=== PATIENT | female | born 2000 | race Caucasian/White ===

== ENCOUNTER 2020-02-18 20:07 | Emergency (ER) | payer OTHER, SELFPAY ==
[2020-02-18 20:37] VITALS: BP 134/85; PULSE 84; RESP 18; TEMP 36.5; O2SAT 98; BMI 33.6
[2020-02-18] MEDS: HYDROcodone-acetaminophen 7.5-325 mg Tablet 1 TAB PO (20:46)
--- NOTE | 2020-02-18 20:49 | W.ED.DENTAL ---
HPI - Dental/Oral General: Chief complaint: Dental/Oral Stated complaint: dental pain Time Seen by Provider: 02/18/20 20:37 Source: patient Mode of arrival: ambulatory Limitations: no limitations History of Present Illness: HPI Narrative: 19-year-old female who states she has had dental pain for last few days. States she is getting her wisdom teeth in the back lower wisdom tooth is hurting. States pain is sharp in nature and rates it a 5 out of 10. She denies any difficulty swallowing. Denies any worsening or improving factors. MD Complaint: tooth pain Associated symptoms: Denies fever(s) Review of Systems Const: Denies: fever(s), chills, body aches or change in appetite Eyes: Denies: blurry vision or eye discomfort ENMT: Reports: dental pain Card: Denies: chest pain Resp: Denies: dyspnea GI: Denies: abdominal pain, nausea, vomiting or diarrhea : Denies: dysuria Musc: Denies: neck pain or back pain Skin/Breast: Denies: rash Neuro: Denies: headache(s) Psych: Denies: depression Sukhdeep/Lymph: Denies: easy bruising All/Imm: Denies: urticaria PFSH ED PFSH: Social History Smoking and tobacco status: current every day smoker Physical Exam Const: COMMON NORMALS: no acute distress, patient oriented x3 and healthy appearing HENMT: COMMON NORMALS: normocephalic and atraumatic HEAD & SCALP: normocephalic and atraumatic OTHER: Tenderness over back lower wisdom tooth with slight gum enlargement no abscess noted. Eye: COMMON NORMALS: Equal, round and reactive pupils present and EOMs intact bilaterally PUPIL: Yes Equal, round and reactive pupils present Neck/C-Spine: COMMON NORMALS: full ROM and supple Chest: COMMONS NORMALS: normal inspection of the chest and normal palpation of entire chest wall Resp: COMMON NORMALS: normal respiratory effort, No retractions, No use of accessory muscles and clear to auscultation bilaterally AUSCULTATION: clear to auscultation bilaterally Cardio: COMMON NORMALS: regular rate, regular rhythm and No murmurs present (Cardio) RATE: regular rate RHYTHM: regular rhythm GI: COMMON NORMALS: Normal to inspection, nondistended, normoactive bowel sounds present, Soft to palpation, non-tender and no masses PALPATION: Yes Soft to palpation Extremity: COMMON NORMALS: normal to inspection and full ROM Neuro: COMMON NORMALS: patient oriented x3, moves all extremities and no focal motor deficits Psych: COMMON NORMALS: mental status grossly normal, Normal thought process present and cooperative THOUGHT PROCESS: Normal thought process present Skin: COMMON NORMALS: no rashes or lesions noted and no wounds GENERAL SKIN EXAM: no rashes or lesions noted Course Vital Signs: Vital signs: Vital Signs Temperature 97.7 F 02/18/20 20:37 Pulse Rate 84 02/18/20 20:37 Respiratory Rate 18 02/18/20 20:37 Blood Pressure 134/85 02/18/20 20:37 Pulse Oximetry 98 02/18/20 20:37 MDM - Dental/Oral MDM Narrative: Medical decision making narrative: Patient presents with dental pain likely needs see a dentist as she possibly needs her wisdom teeth removed. We will start her on penicillin and Naprosyn. She had no abscess or trismus. She is to return if worsening. Discharge Plan Discharge Patient Disposition: Home, Self-Care Clinical Impression: Pain, dental Condition: Stable Prescriptions: New Naprosyn 500 mg tablet 500 mg PO BID PRN (Reason: pain) Qty: 20 RF: 0 penicillin V potassium 500 mg tablet 500 mg PO Q8H 10 Days Qty: 30 RF: 0 Discharge Orders: Discharge Order (Routine); Ordered 02/18/20 Ordered By: Nikky Lopes Referrals: Sj Em FNP-C [Primary Care Provider] - Discharge Diet: Advance as tolerated Discharge Activity: Resume usual activity Patient Instructions: Toothache (ED) Coding Level of Care Code ED Research Associate Quality Control Qc for Viraj Mondragon
--- NOTE | 2020-02-19 11:25 | DCPLANNER ---
sales and business development manager had message to speak with patient about getting established with a dentist. sales and business development manager spoke with patient, about getting established with a dentist.
== END 2020-02-18 21:05 | disposition home or self-care (01) ==
PROVIDERS: Emergency Provider Emergency Medicine; PCP Nurse Practitioner
DX: K08.89 Other specified disorders of teeth and supporting structures (principal); F17.210 Nicotine dependence, cigarettes, uncomplicated
CPT/HCPCS: 12345; 99281; 99282

== ENCOUNTER → 2020-02-25 15:16 | Outpatient (BNVA) | payer OTHER, SELFPAY | PROVIDERS: PCP Nurse Practitioner Family; Visit Provider Nurse Practitioner Family | DX: N39.0 Urinary tract infection, site not specified (principal); N93.9 Abnormal uterine and vaginal bleeding, unspecified; B37.3 Candidiasis of vulva and vagina; Z11.3 Encounter for screening for infections with a predominantly sexual mode of transmission | CPT/HCPCS: 81003; 81025; 84702; 87491; 87591; 87661 ==

== ENCOUNTER 2020-05-15 14:00 | Outpatient (CLI) | payer OTHER, SELFPAY ==
--- NOTE | 2020-05-15 14:00 | CT_ITS ---
WS: [id number] CT ABDOMEN AND PELVIS NONCONTRAST HISTORY: Right upper abdomen pain and tenderness TECHNIQUE: Imaging performed through the abdomen and pelvis. Coronal and sagittal reformats are submi tted. All CT scans at [facility] use at least one of these dose optimization techniques: automated exposure control; mA and/or kV adjustment per patient size (includes targeted exams where d ose is matched to clinical indication); or iterative reconstruction. DLP: 1200.27 mGy.cm COMPARISON: 03/16/2019 Lower thorax: Lung bases are clear. Visualized heart is normal. No hiatal hernia. Liver: Normal size liver. No mass or bile duct dilatation. Gallbladder: Normal gallbladder. Pancreas: Normal size and attenuation. Normal pancreatic duct. No pancreatitis or mass. Spleen: Normal. Adrenal glands: Normal. No mass. Right kidney: Normal size kidney with no mass or hydronephrosis. Left kidney: Nonobstructing 2 mm stone in the upper pole similar to the prior examination. Aorta: Normal abdominal aorta, no aneurysm or atherosclerosis. There are numerous small mesenteric and RIGHT lower quadrant lymph nodes. These lymph nodes were pres ent on the study of 03/16/2019. The appendix is normal. GI tract: Normal appendix. No GI tract obstruction or diverticulosis. Abdominal wall: Negative. No hernia. Pelvis: Normal anteverted uterus. Ovaries are both identified and appear normal size. Small follicles are probably present. Urinary bladder minimally distended. No free fluid or adenopathy. Osseous structures: Unremarkable. CT/CT abdomen pelvis wo con [id number] IMPRESSION: 1. Numerous small mesenteric and RIGHT lower quadrant lymph nodes. Consider me senteric adenitis. These lymph nodes were also present on the study of 9. 2. Normal appendix. 3. Nonobstructing 2 mm LEFT renal calcification.
== END 2020-05-15 14:01 | disposition home or self-care (01) ==
LOC: RAD 14:01
PROVIDERS: PCP Nurse Practitioner Family; Visit Provider Nurse Practitioner
DX: R10.813 Right lower quadrant abdominal tenderness (principal); N20.0 Calculus of kidney
CPT/HCPCS: 74176; 81003; 81025; 85025

== ENCOUNTER 2020-05-27 05:43 | Emergency (ER) | payer OTHER, SELFPAY ==
[2020-05-27 05:48] VITALS: BP 125/76; PULSE 90; RESP 22; TEMP 36.6; O2SAT 98; BMI 37.2
[2020-05-27 06:04] VITALS: BP 123/69; PULSE 76; RESP 16; O2SAT 98
--- NOTE | 2020-05-27 06:12 | PC.NURSE ---
blood drawn and taken to lab by nurse
--- NOTE | 2020-05-27 06:25 | ED_ITS ---
HPI - Abdominal Pain General: Chief Complaint: Abdominal Pain Stated Complaint: abd pain Time Seen by Provider: 05/27/20 06:17 History of Present Illness: HPI narrative: 19-year-old female presents emergency room complaining of generalized abdominal pain she cannot of localize it seems to be migrating to the right lower quadrant. She was seen 12 days ago in the clinic had a CT done had mesenteric lymphadenitis and the bladder infection was started on antibiotics for the bladder infection. She is under the impression that the antibiotics were for the mesenteric lymphadenitis we discussed that today. She is complaining of continued recurring abdominal pain she denies any dysuria urgency or frequency she did have a nonobstructing left renal calculi but she has no pain in the left side she is not had any blood in her urine. She denies fever she denies cough she denies diarrhea. No myalgias. MD elicited complaint: abdominal pain Pertinent past history: kidney stones and other (Mesenteric lymphadenitis) Onset (ago): hour(s) Pain Consistency: constant Location: RLQ Severity: severe Quality: cramping and stabbing Exacerbating factors: movement Relieving factors: nothing Associated Symptoms: Reports anorexia, GI cramping and nausea; Denies belching, bloating, change in bowel habits, change in stool character, chills, coffee ground emesis, constipation, diarrhea, dyspepsia, dysuria, excessive flatus, fever(s), heartburn, hematochezia, hematuria, hematemesis, fecal incontinence, loose stools, melena, poor appetite, syncope and vomiting Review of Systems Const: Denies: fever(s) or chills ENMT: Denies: throat pain, ear or mastoid pain, nasal discharge or nasal congestion Card: Denies: syncope Resp: Denies: dyspnea, productive cough or non-productive cough GI: Reports: nausea and GI cramping; Denies: vomiting, hematemesis, coffee ground emesis, heartburn, diarrhea, constipation, bloating, belching, excessive flatus, fecal incontinence, change in bowel habits, change in stool character, hematochezia or melena : Denies: dysuria or hematuria Skin/Breast: Denies: rash or pruritus PFSH ED PFSH: Medical History Chronic post-traumatic stress disorder (PTSD) History of panic attacks Surgical History History of D&C Family History Other Cancer Dementia Diabetes Denies family history of Bleeding disorder Stroke Social History Smoking and tobacco status: current every day smoker cigarettes Packs smoked per day: 1 Years cigarettes smoked: 6 Second hand smoke exposure: Yes Smoking risk assessment/counseling performed?: Yes Alcohol intake: former Desire information about alcohol rehabilitation?: No Counseling given: No Desire information about substance/drug rehabilitation?: No Counseling given: No Adopted: No Caregiver/support person: No Lives independently: Yes Household members: significant other Housing: House Marital status: Single Number of children: 0 service: No Current occupational status: unemployed and student Current occupation: [employer] Pets and animals: Yes Pets & animals: cat(s) and dog(s) History of recent travel: Yes Out of state: Yes Sexually active: Yes Current gender identity: Female Female Reproductive History: : 1 Physical Exam Const: COMMON NORMALS: no acute distress GENERAL APPEARANCE: cooperative and comfortable ORIENTATION/CONSCIOUSNESS: Yes awake, Yes oriented to person, Yes oriented to place and Yes oriented to time HENMT: COMMON NORMALS: normocephalic, atraumatic and hearing grossly normal bilaterally HEAD & SCALP: normocephalic and atraumatic Eye: COMMON NORMALS: Equal, round and reactive pupils present, EOMs intact bilaterally, conjunctivae normal and no scleral icterus CONJUNCTIVA: Yes conjunctivae normal PUPIL: Yes Equal, round and reactive pupils present Neck/C-Spine: COMMON NORMALS: no JVD Resp: COMMON NORMALS: normal respiratory effort, No retractions, No use of accessory muscles and clear to auscultation bilaterally AUSCULTATION: clear to auscultation bilaterally Cardio: COMMON NORMALS: no JVD, regular rate, regular rhythm and No murmurs present (Cardio) RATE: regular rate RHYTHM: regular rhythm GI: COMMON NORMALS: No hepatosplenomegaly present AUSCULTATION: Yes normoactive bowel sounds PALPATION: Yes Tenderness to palpation present (GI) Details: RLQ, No Guarding due to palpation present (GI) and Yes No hepatosplenomegaly present : COMMON NORMALS: Yes no CVA tenderness BLADDER/KIDNEY EXAM: Yes no CVA tenderness Back/Pelvis: COMMON NORMALS: no CVA tenderness Extremity: COMMON NORMALS: normal to inspection, capillary refill normal, no clubbing, cyanosis or edema, no calf tenderness and no pedal edema Neuro: SENSORIUM/ORIENTATION: Yes oriented to person, Yes oriented to place and Yes oriented to time Skin: COMMON NORMALS: no rashes or lesions noted GENERAL SKIN EXAM: no rashes or lesions noted Course Vital Signs: Vital signs: Vital Signs Temperature 97.9 F 05/27/20 05:48 Pulse Rate 59 L 05/27/20 10:02 Respiratory Rate 15 05/27/20 10:02 Blood Pressure 114/67 05/27/20 10:02 Pulse Oximetry 97 05/27/20 10:02 MDM - Abdominal Pain MDM Narrative: Medical decision making narrative: Reviewed findings with the patient. We will go ahead and start her on Diflucan. Pelvic exam done by midlevel unremarkable for any cervical motion tenderness. We will have her follow-up with primary care doctor if not improving. Lab Data: Labs: Lab Results 05/27/20 05/27/20 05/27/20 Range/Units 06:10 06:10 06:10 WBC 12.5 (4.5-13.0) 10^3/ uL RBC 4.47 (4.1-5.3) 10^6/u L Hgb 13.2 (11.5-15.3) g/dL Hct 40.0 (37.0-47.0) % MCV 89.5 (81-99) fL MCH 29.5 (28.0-34.0) pg MCHC 33.0 (30.0-36.0) g/dL RDW 12.4 (12.1-15.1) % Plt Count 317 (130-400) 10^3/c mm MPV 11.5 H (7.4-10.4) fL Neut % (Auto) 60.1 % Lymph % (Auto) 28.4 % [place] % (Auto) 5.7 % Eos % (Auto) 4.8 % Baso % (Auto) 0.7 % Neut # (Auto) 7.53 (1.8-8.0) 10^3/u L Lymph # (Auto) 3.6 (1.5-6.5) 10^3/u L [place] # (Auto) 0.7 (0.2-0.9) 10^3/u L Eos # (Auto) 0.6 (0.0-0.8) 10^3/u L Baso # (Auto) 0.1 (0.0-0.1) 10^3/u L Nucleated RBC % (a uto) 0 % Nucleated RBCs # 0.0 /100WBC Sodium 138 (136-145) mmol/L Potassium 4.0 (3.5-5.1) mmol/L Chloride 104 (98-107) mmol/L Carbon Dioxide 20 L (22-29) mmol/L Anion Gap 18.0 (5-19) BUN 9 (6-20) mg/dL Creatinine 0.7 (0.5-0.9) mg/dL GFR Calculation 106.7 (90-130) mL/min Glucose 125 H (65-115) mg/dL Calculated Osmolal ity 286 (285-295) mOsm/k g Calcium 9.5 (8.5-10.5) mg/dL Total Bilirubin 0.2 (0.15-1.2) mg/dL AST 16 (0-32) U/L ALT 17 (0-33) U/L Alkaline Phosphata se 73 (35-105) IU/L Total Protein 6.8 (6.6-8.7) g/dL Albumin 4.2 (3.5-5.2) g/dL Globulin 2.6 (1.3-4.6) g/dL Lipase 27 (13-60) U/L HCG, Qual Negative (Negative) Urine Color (Yellow) Urine Appearance (CLEAR) Urine pH (5-7) Ur Specific Gravit y (1.005-1.030) Urine Protein (Negative) Urine Glucose (UA) (Normal) Urine Ketones (Negative) Urine Blood (Negative) Urine Nitrate (Negative) Urine Bilirubin (Negative) Urine Urobilinogen (Negative) mg/dL Ur Leukocyte Gail ase (Negative) Urine RBC (0-2) /hpf Urine WBC (0-5) /hpf Ur Squamous Epith Cells (0-5) /hpf Amorphous Sediment Urine Bacteria (NONE) /hpf Urine Mucus /hpf 05/27/20 Range/Units 06:42 WBC (4.5-13.0) 10^3/ uL RBC (4.1-5.3) 10^6/u L Hgb (11.5-15.3) g/dL Hct (37.0-47.0) % MCV (81-99) fL MCH (28.0-34.0) pg MCHC (30.0-36.0) g/dL RDW (12.1-15.1) % Plt Count (130-400) 10^3/c mm MPV (7.4-10.4) fL Neut % (Auto) % Lymph % (Auto) % [place] % (Auto) % Eos % (Auto) % Baso % (Auto) % Neut # (Auto) (1.8-8.0) 10^3/u L Lymph # (Auto) (1.5-6.5) 10^3/u L [place] # (Auto) (0.2-0.9) 10^3/u L Eos # (Auto) (0.0-0.8) 10^3/u L Baso # (Auto) (0.0-0.1) 10^3/u L Nucleated RBC % (a uto) % Nucleated RBCs # /100WBC Sodium (136-145) mmol/L Potassium (3.5-5.1) mmol/L Chloride (98-107) mmol/L Carbon Dioxide (22-29) mmol/L Anion Gap (5-19) BUN (6-20) mg/dL Creatinine (0.5-0.9) mg/dL GFR Calculation (90-130) mL/min Glucose (65-115) mg/dL Calculated Osmolal ity (285-295) mOsm/k g Calcium (8.5-10.5) mg/dL Total Bilirubin (0.15-1.2) mg/dL AST (0-32) U/L ALT (0-33) U/L Alkaline Phosphata se (35-105) IU/L Total Protein (6.6-8.7) g/dL Albumin (3.5-5.2) g/dL Globulin (1.3-4.6) g/dL Lipase (13-60) U/L HCG, Qual (Negative) Urine Color Yellow (Yellow) Urine Appearance Sl hazy (CLEAR) Urine pH 7.5 (5-7) Ur Specific Gravit y 1.020 (1.005-1.030) Urine Protein Neg (Negative) Urine Glucose (UA) Norm (Normal) Urine Ketones 1+ H (Negative) Urine Blood 3+ H (Negative) Urine Nitrate Negative (Negative) Urine Bilirubin Neg (Negative) Urine Urobilinogen Norm (Negative) mg/dL Ur Leukocyte Gail ase Negative (Negative) Urine RBC 10-15 H (0-2) /hpf Urine WBC 0-4 H (0-5) /hpf Ur Squamous Epith Cells 5-10 H (0-5) /hpf Amorphous Sediment Not Reportable Urine Bacteria Trace (NONE) /hpf Urine Mucus 1+ /hpf Discharge Plan Discharge Patient Disposition: Home Clinical Impression: Abdominal pain, Candidiasis of genitalia in female Condition: Stable Prescriptions: New Diflucan 150 mg tablet 150 mg PO DAILY Qty: 1 RF: 0 No Action ciprofloxacin HCl [Cipro] 500 mg tablet 500 mg PO Q12H Qty: 20 RF: 0 etonogestrel-ethinyl estradiol [NuvaRing] 0.12-0.015 mg/24 hr ring 1 vag ring VAGINAL .wear for 3 weeks Qty: 3 RF: 1 Multiple Vitamins Tablet 1 tab PO DAILY RF: 0 ibuprofen 200 mg Tablet 400 - 800 mg PO PRN RF: 0 Miralax 17 gram/dose Powder 17 g PO EVERY OTHER DAY RF: 0 apple cider vinegar 1 tab PO DAILY RF: 0 Discharge Orders: Discharge Order (Routine); Ordered 05/27/20 Ordered By: Ace Ramires Referrals: Sj Em, ROPER OPERATOR-C [Primary Care Provider] - Patient Instructions: Abdominal Pain (ED) Discharge Date/Time: 05/27/20 10:03 Coding Level of Care Code ED Tape Editor for Chg Fwd Exam Comprehensive
[2020-05-27 06:27] LABS: Basophils # 0.1 10^3/uL (0.0-0.1); Basophils % 0.7 %; Eosinophils # 0.6 10^3/uL (0.0-0.8); Eosinophils % 4.8 %; Hemoglobin 13.2 g/dL (11.5-15.3); Lymphocytes # 3.6 10^3/uL (1.5-6.5); Lymphocytes % 28.4 %; Mean Corpuscular Hemoglobin 29.5 pg (28.0-34.0); Mean Corpuscular Volume 89.5 fL (81-99); Mean Platelet Volume 11.5 fL (7.4-10.4); Monocytes # 0.7 10^3/uL (0.2-0.9); Monocytes % 5.7 %; Neutrophils # 7.53 10^3/uL (1.8-8.0); Neutrophils % 60.1 %; Nucleated Red Blood Cells % 0 %; Platelet Count 317 10^3/cmm (130-400); Red Blood Count 4.47 10^6/uL (4.1-5.3); Red Cell Distribution Width 12.4 % (12.1-15.1); White Blood Count 12.5 10^3/uL (4.5-13.0)
[2020-05-27 06:35] LABS: HCG, Serum Qual Negative (Negative)
[2020-05-27 06:41] LABS: Alanine Aminotransferase 17 U/L (0-33); Albumin Level 4.2 g/dL (3.5-5.2); Alkaline Phosphatase 73 IU/L (35-105); Aspartate Amino Transferase 16 U/L (0-32); Blood Urea Nitrogen 9 mg/dL (6-20); Calcium 9.5 mg/dL (8.5-10.5); Carbon Dioxide 20 mmol/L (22-29); Chloride 104 mmol/L (98-107); Globulin 2.6 g/dL (1.3-4.6); Glomerular Filtration Rate 106.7 mL/min (90-130); Glucose 125 mg/dL (65-115); Lipase 27 U/L (13-60); Osmolality Calculated 286 mOsm/kg (285-295); Sodium 138 mmol/L (136-145); Total Bilirubin 0.2 mg/dL (0.15-1.2); Total Protein 6.8 g/dL (6.6-8.7)
[2020-05-27] MEDS: sodium chlor 0.9% + KCl 20 mEq 20 MEQ/1,000 ML BAG 125 MEQ IV (06:42)
[2020-05-27 06:43] VITALS: BP 102/67; PULSE 71; RESP 17; O2SAT 96
--- NOTE | 2020-05-27 07:05 | CT_ITS ---
WS: [id number] CT ABDOMEN AND PELVIS WITH CONTRAST HISTORY: Abdominal pain. TECHNIQUE: Imaging performed of the abdomen and pelvis with IV contrast. Single phase imaging of the abdomen. Coronal and sagittal reformats are submitted. All CT scans at [facility] use at least one of these dose optimization techniques: automated exposure control; mA and/or kV adjustment per patient size (includes targeted exams where dose is matched to clinical indication); or iterativ e reconstruction. IV CONTRAST: Omnipaque 300; 95 mL IV. Oral contrast: No DLP: 1329.58 mGy.cm COMPARISON: 05/15/2020 Lower thorax: Lung bases are clear. Heart is normal size. No hiatal hernia. Liver/biliary system: Normal size with no intrahepatic dilatation. Gallbladder: Normal. No gallstones or wall thickening. No pericholecystic fluid. Pancreas: Normal. Spleen: Normal. Adrenal glands: Normal. Right kidney: Normal. Left kidney: Normal. Aorta: Normal. Lymphadenopathy: Small RIGHT lower quadrant and mesenteric lymph nodes. No adenopathy. Free fluid: None. GI tract: Unremarkable. Abdominal wall: Unremarkable abdominal wall. No hernia. Pelvis: Normal. Small ovarian follicles bilaterally. Bones: Unremarkable. CT/CT abdomen pelvis w con* [id number] IMPRESSION: 1. No evidence for appendicitis or renal obstruction. 2. Small benign-appearing mesenteric and RIGHT lower quadrant lymph nodes.
[2020-05-27 07:14] VITALS: RESP 18; O2SAT 98
[2020-05-27 07:14] LABS: Add Urine Culture? Yes; Add Urine Microscopic? YES; Bacteria Urine TRACE /hpf; Bilirubin Urine Neg (Negative); Blood Urine 3+ (Negative); Glucose Urine UA Norm (Normal); Ketones Urine 1+ (Negative); Leukocyte Esterase Urine Negative (Negative); Mucus Urine 1+ /hpf; Nitrate Urine Negative (Negative); Protein Urine Neg (Negative); Urine Appearance SL Hazy (CLEAR); Urine Color Yellow (Yellow); Urobilinogen Urine Norm (Negative); WBC Urine 0-4 /hpf (0-5); pH Urine 7.5 (5-7)
[2020-05-27] MEDS: ondansetron 2 mg/ML SDV 2 mL 4 MG IVP (07:14)
[2020-05-27] MEDS: morphine 4 mg/mL SDV 1 mL IVP (07:14)
[2020-05-27 07:18] VITALS: BP 106/56; PULSE 79; RESP 17; O2SAT 97
--- NOTE | 2020-05-27 07:18 | PC.NURSE ---
At patients bedside to introduce myself. Patient resting in bed. No distress noted at this time. WIll continue to monitor patient.
[2020-05-27] MEDS: iohexol 300 mg/mL 100 mL Btl IV (07:49)
--- NOTE | 2020-05-27 09:46 | PC.NURSE ---
Vaginal swabs obtained by FLAVOR MAKER and sent to lab.
[2020-05-27 10:02] VITALS: BP 114/67; PULSE 59; RESP 15; O2SAT 97
== END 2020-05-27 10:03 | disposition home or self-care (01) ==
PROVIDERS: Emergency Provider Family Medicine; PCP Nurse Practitioner
DX: R10.9 Unspecified abdominal pain (principal); B37.3 Candidiasis of vulva and vagina; F17.210 Nicotine dependence, cigarettes, uncomplicated
CPT/HCPCS: 12345; 74177; 80053; 81001; 83690; 84703; 85025; 87086; 87491; 87591; 87661; 96365; 96366; 96375; 99283; 99284; J2270; J2405; Q9967

== ENCOUNTER → 2020-06-09 10:41 | Outpatient (BNVA) | payer OTHER, SELFPAY | PROVIDERS: PCP Nurse Practitioner; Visit Provider Nurse Practitioner Family | DX: Z11.59 Encounter for screening for other viral diseases (principal); Z20.828 Contact with and (suspected) exposure to other viral communicable diseases; J06.9 Acute upper respiratory infection, unspecified | CPT/HCPCS: 87635 ==

== ENCOUNTER → 2020-08-19 09:46 | Outpatient (BNVA) | payer OTHER, SELFPAY | PROVIDERS: PCP Nurse Practitioner; Visit Provider Nurse Practitioner | DX: Z11.3 Encounter for screening for infections with a predominantly sexual mode of transmission (principal); R30.0 Dysuria; N91.2 Amenorrhea, unspecified; Z12.4 Encounter for screening for malignant neoplasm of cervix | CPT/HCPCS: 87491; 87591; 88175 ==

== ENCOUNTER 2020-10-18 15:57 | Emergency (ER) | payer OTHER, SELFPAY ==
[2020-10-18 16:03] VITALS: BP 144/86; PULSE 85; RESP 18; TEMP 37.1; O2SAT 97; BMI 36.3
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
--- NOTE | 2020-10-18 16:17 | XRR_ITS ---
PROCEDURE INFORMATION: Exam: XR Abdomen, 3 or More Views Exam date and time: 10/18/2020 5:15 PM Age: 20 years old Clinical indication: Abdominal pain; Additional info: Abd pain, constipation TECHNIQUE: Imaging protocol: XR of the abdomen. Views: 3 or more views. COMPARISON: No relevant prior studies available. FINDINGS: Gastrointestinal tract: Normal. No bowel dilation. Moderate colonic fecal stasis in the ascending colon. The remainder of the colon is unremarkable. Negative for fecal impaction or bowel obstruction. Intraperitoneal space: Normal. No free air. Bones/joints: Unremarkable for age. XR/XR acute abdomen series [id number] IMPRESSION: 1. No acute chest abnormality. 2. Negative for acute GI abnormality
[2020-10-18] MEDS: sodium chloride 0.9% 1,000 ML 999 ML IV (16:33)
[2020-10-18] MEDS: ketorolac 30 mg/mL INJ 15 MG IVP (16:35)
[2020-10-18] MEDS: metoclopramide 5 mg/mL SDV 2 mL 10 MG IVP (16:35)
[2020-10-18] MEDS: diphenhydrAMINE 50 mg/mL SDV 1mL 12.5 MG IVP (16:36)
[2020-10-18 16:44] VITALS: BP 110/72; PULSE 69; RESP 18; O2SAT 97
[2020-10-18 16:51] LABS: Basophils # 0.1 10^3/uL (0.0-0.1); Basophils % 0.5 %; Eosinophils # 0.3 10^3/uL (0.0-0.8); Eosinophils % 2.2 %; Hematocrit 40.8 % (37.0-47.0); Hemoglobin 13.6 g/dL (11.5-15.3); Lymphocytes # 2.7 10^3/uL (0.8-4.8); Lymphocytes % 17.8 %; Mean Corpuscular HGB Conc 33.3 g/dL (30.0-36.0); Mean Platelet Volume 11.3 fL (7.4-10.4); Monocytes # 0.9 10^3/uL (0.2-0.9); Neutrophils # 11.08 10^3/uL (1.8-7.7); Neutrophils % 73.2 %; Nucleated Red Blood Cells % 0 %; Platelet Count 317 10^3/cmm (130-400); Red Blood Count 4.69 10^6/uL (4.1-5.3); Red Cell Distribution Width 12.5 % (12.1-15.1); White Blood Count 15.1 10^3/uL (4.0-10.0)
[2020-10-18 16:59] LABS: HCG, Serum Qual Negative (Negative)
[2020-10-18 17:06] LABS: Alanine Aminotransferase 21 U/L (0-33); Albumin Level 4.4 g/dL (3.5-5.2); Alkaline Phosphatase 82 IU/L (35-105); Aspartate Amino Transferase 17 U/L (0-32); Blood Urea Nitrogen 10 mg/dL (6-20); Calcium 10.1 mg/dL (8.5-10.5); Carbon Dioxide 22 mmol/L (22-29); Chloride 105 mmol/L (98-107); Globulin 2.9 g/dL (1.3-4.6); Glomerular Filtration Rate 105.6 mL/min (90-130); Glucose 90 mg/dL (65-115); Lipase 16 U/L (13-60); Osmolality Calculated 283 mOsm/kg (285-295); Sodium 137 mmol/L (136-145); Total Bilirubin 0.4 mg/dL (0.15-1.2); Total Protein 7.3 g/dL (6.6-8.7)
[2020-10-18 17:08] LABS: Add Urine Microscopic? YES; Bacteria Urine 1+ /hpf; Bilirubin Urine Neg (Negative); Blood Urine 3+ (Negative); Glucose Urine UA Norm (Normal); Ketones Urine Negative (Negative); Leukocyte Esterase Urine Negative (Negative); Mucus Urine 2+ /hpf; Nitrate Urine Negative (Negative); Protein Urine Neg (Negative); RBC Urine 15-25 /hpf (0-2); Specific Gravity, Urine 1.025 (1.005-1.030); Squamous Epithelial Cell Urine 0-4 /hpf (0-5); Urine Appearance Clear (CLEAR); Urine Color Yellow (Yellow); Urobilinogen Urine Norm (Negative); WBC Urine 0-4 /hpf (0-5); pH Urine 5 (5-7)
[2020-10-18 17:09] LABS: Add Urine Culture? Yes
--- NOTE | 2020-10-18 17:14 | PC.NURSE ---
patient stated felt better, tolerated pain well, denied any nausea at this time.
[2020-10-18 17:58] VITALS: BP 118/67; PULSE 89; RESP 16; O2SAT 98
== END 2020-10-18 18:08 | disposition home or self-care (01) ==
PROVIDERS: Nurse Practitioner Family; Emergency Provider Physician Assistant; PCP Nurse Practitioner
DX: K58.1 Irritable bowel syndrome with constipation (principal); N30.01 Acute cystitis with hematuria; F17.290 Nicotine dependence, other tobacco product, uncomplicated
CPT/HCPCS: 74022; 80053; 81001; 83690; 84703; 85025; 87086; 96361; 96374; 96375; 99284; J1200; J1885; J2765; J7030

== ENCOUNTER → 2020-12-18 15:20 | Outpatient (BNVA) | payer OTHER, SELFPAY | PROVIDERS: PCP Nurse Practitioner; Visit Provider Nurse Practitioner Women's Health | DX: Z12.4 Encounter for screening for malignant neoplasm of cervix (principal) | CPT/HCPCS: 88175 ==

== ENCOUNTER → 2021-02-20 11:41 | Outpatient (BNVA) | payer OTHER, SELFPAY | PROVIDERS: PCP Nurse Practitioner; Visit Provider Nurse Practitioner Family | DX: R39.9 Unspecified symptoms and signs involving the genitourinary system (principal); F41.8 Other specified anxiety disorders; Z72.51 High risk heterosexual behavior | CPT/HCPCS: 81003; 87491; 87591; 87661 ==

== ENCOUNTER 2021-10-19 14:09 | Emergency (ER) | payer MEDICAID, SELFPAY ==
[2021-10-19 14:18] VITALS: BP 110/70; PULSE 85; RESP 16; TEMP 36.7; O2SAT 99; BMI 33.6
--- NOTE | 2021-10-19 14:48 | US_ITS ---
WS: [id number] ULTRASOUND OB LIMITED. HISTORY: lower abdominal/pelvic pain; 18 wks COMPARISON: None available. Single intrauterine gestation in cephalic position. Cervix is closed measuring 5.3 cm. Both transabdo mady and transvaginal imaging is submitted. No cervical insufficiency. Limited biometry correlates with a gestation of 19 weeks 0 days and EDC of 03/15/2022. heart rate at 153 BPM. Placenta is posterior and to the RIGHT. No previa or abruption. Grade 1. Normal amount of amniotic fl uid. US/US OB lmt with transvaginal IMPRESSION: 1. Normal cardiac activity. 2. Normal amniotic fluid. 3. Normal cervical length. 4. Limited biometry correlates with a gestation of 19 weeks 0 days.
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
[2021-10-19 15:01] VITALS: BP 130/66; PULSE 73; RESP 16; O2SAT 96
[2021-10-19 15:04] LABS: Basophils % 0.3 %; Eosinophils # 0.2 10^3/uL (0.0-0.8); Eosinophils % 1.6 %; Hematocrit 36.1 % (37.0-47.0); Hemoglobin 12.2 g/dL (11.5-15.3); Lymphocytes # 2.5 10^3/uL (0.8-4.8); Lymphocytes % 17.5 %; Mean Corpuscular HGB Conc 33.8 g/dL (30.0-36.0); Mean Corpuscular Volume 88.7 fl (81-99); Mean Platelet Volume 11.3 fL (7.4-10.4); Monocytes # 0.8 10^3/uL (0.2-0.9); Monocytes % 5.6 %; Neutrophils # 10.57 10^3/uL (1.8-7.7); Neutrophils % 74.6 %; Nucleated Red Blood Cells % 0 %; Platelet Count 273 10^3/cmm (130-400); Red Blood Count 4.07 10^6/uL (4.1-5.3); Red Cell Distribution Width 12.5 % (12.1-15.1); White Blood Count 14.2 10^3/uL (4.0-10.0)
[2021-10-19 15:20] LABS: Add Urine Culture? No; Add Urine Microscopic? YES; Bacteria Urine 1+ /hpf; Bilirubin Urine Neg (Negative); Blood Urine 3+ (Negative); Glucose Urine UA Norm (Normal); Ketones Urine Negative (Negative); Leukocyte Esterase Urine 2+ (Negative); Nitrate Urine Negative (Negative); Protein Urine Neg (Negative); RBC Urine 0-4 /hpf (0-2); Specific Gravity, Urine 1.025 (1.005-1.030); Urine Appearance Hazy (CLEAR); Urine Color Yellow (Yellow); Urobilinogen Urine 1 mg/dL (Negative); pH Urine 6 (5-7)
[2021-10-19 15:33] LABS: Alanine Aminotransferase 17 U/L (0-33); Albumin Level 4.1 g/dL (3.5-5.2); Alkaline Phosphatase 77 IU/L (35-105); Anion Gap 16.2 (5-19); Aspartate Amino Transferase 12 U/L (0-32); Blood Urea Nitrogen 7 mg/dL (6-20); Calcium 9.7 mg/dL (8.5-10.5); Carbon Dioxide 20 mmol/L (22-29); Chloride 104 mmol/L (98-107); Globulin 2.6 g/dL (1.3-4.6); Glomerular Filtration Rate 154.3 mL/min (90-130); Glucose 75 mg/dL (65-115); Osmolality Calculated 279 mOsm/kg (285-295); Potassium 4.2 mmol/L (3.5-5.1); Sodium 136 mmol/L (136-145); Total Bilirubin 0.2 mg/dL (0.15-1.2); Total Protein 6.7 g/dL (6.6-8.7)
[2021-10-19 16:10] VITALS: BP 105/56; PULSE 73; RESP 16; O2SAT 98
== END 2021-10-19 16:11 | disposition home or self-care (01) ==
PROVIDERS: Emergency Provider Physician Assistant; PCP Nurse Practitioner
DX: O23.42 Unspecified infection of urinary tract in pregnancy, second trimester (principal); O26.892 Other specified pregnancy related conditions, second trimester; R10.2 Pelvic and perineal pain; O99.332 Smoking (tobacco) complicating pregnancy, second trimester; F17.290 Nicotine dependence, other tobacco product, uncomplicated; Z3A.18 18 weeks gestation of pregnancy
CPT/HCPCS: 76815; 76817; 80053; 81001; 85025; 99283

== ENCOUNTER 2022-01-18 20:50 | Outpatient (CLI) | payer MEDICAID, SELFPAY ==
[2022-01-18] VITALS (40 sets, daily range): BP systolic 111–126; BP diastolic 56–75; PULSE 74–96; RESP 16; TEMP 36.1–36.8; O2SAT 93–98; BMI 38.6
[2022-01-18] MEDS: betamethasone susp 6 mg/mL 5 mL 12 MG IM (21:39)
[2022-01-18] MEDS: terbutaline 1 mg/mL INJ 0.25 MG SUBCUT (21:40)
[2022-01-18] MEDS: lactated ringers 1,000 ML 999 ML IV (21:40)
[2022-01-18] MEDS: NIFEdipine 10 mg Capsule 20 MG PO ×2 (21:40→23:09)
[2022-01-18 21:56] LABS: Basophils # 0.1 10^3/uL (0.0-0.1); Basophils % 0.4 %; Eosinophils # 0.2 10^3/uL (0.0-0.8); Eosinophils % 1.3 %; Hematocrit 36.2 % (37.0-47.0); Hemoglobin 12.1 g/dL (11.5-15.3); Lymphocytes # 3.8 10^3/uL (0.8-4.8); Lymphocytes % 27.7 %; Mean Corpuscular HGB Conc 33.4 g/dL (30.0-36.0); Mean Corpuscular Hemoglobin 29.5 pg (28.0-34.0); Mean Corpuscular Volume 88.3 fl (81-99); Mean Platelet Volume 11.6 fL (7.4-10.4); Monocytes % 7.1 %; Neutrophils # 8.75 10^3/uL (1.8-7.7); Neutrophils % 62.9 %; Nucleated Red Blood Cells % 0 %; Platelet Count 256 10^3/cmm (130-400); Red Cell Distribution Width 12.6 % (12.1-15.1); White Blood Count 13.9 10^3/uL (4.0-10.0)
[2022-01-18] MEDS: ampicillin 2,000 MG in sodium chloride 0.9% (plus) 50 ML 100 MG IV (22:15)
[2022-01-18 22:25] LABS: Bilirubin Urine Neg (Negative); Blood Urine 2+ (Negative); Glucose Urine UA Norm (Normal); Ketones Urine Negative (Negative); Leukocyte Esterase Urine 2+ (Negative); Nitrate Urine Positive (Negative); Protein Urine Trace (Negative); Specific Gravity, Urine 1.015 (1.005-1.030); Urine Appearance Clear (CLEAR); Urine Color Straw (Yellow); Urobilinogen Urine Norm (Negative); pH Urine 7 (5-7)
[2022-01-18 22:26] LABS: Bacteria Urine 1+ /hpf; WBC Urine 15-25 /hpf (0-5)
[2022-01-18 22:27] LABS: Add Urine Culture? Yes; Mucus Urine TRACE /hpf
[2022-01-18 22:42] LABS: Alanine Aminotransferase 24 U/L (0-33); Albumin Level 3.5 g/dL (3.5-5.2); Alkaline Phosphatase 91 IU/L (35-105); Blood Urea Nitrogen 7 mg/dL (6-20); Calcium 9.4 mg/dL (8.5-10.5); Carbon Dioxide 19 mmol/L (22-29); Chloride 104 mmol/L (98-107); Globulin 2.6 g/dL (1.3-4.6); Glomerular Filtration Rate 199.6 mL/min (90-130); Glucose 81 mg/dL (65-115); Osmolality Calculated 279 mOsm/kg (285-295); Sodium 136 mmol/L (136-145); Total Bilirubin 0.2 mg/dL (0.15-1.2); Total Protein 6.1 g/dL (6.6-8.7)
[2022-01-18 22:45] LABS: Anion Gap 17.4 (5-19); Potassium 4.4 mmol/L (3.5-5.1)
[2022-01-18 22:46] LABS: Aspartate Amino Transferase 24 U/L (0-32)
[2022-01-18] MEDS: cefTRIAXone 1,000 MG in sodium chloride 0.9% (plus) 50 ML 100 MG IV (23:44)
[2022-01-19] VITALS (28 sets, daily range): BP systolic 104–128; BP diastolic 56–64; PULSE 79–97; RESP 16; TEMP 36.2; O2SAT 93–98
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
[2022-01-19] MEDS: magnesium sulfate premix 4 GM/100 ML PREMIX IV (00:23)
[2022-01-19] MEDS: dextrose 5%-lactated ringers 1,000 ML 125 ML IV (00:23)
[2022-01-19] MEDS: magnesium sulfate premix 20 GM/500 ML BAG IV (00:43)
== END 2022-01-19 01:40 | disposition other institution (70) ==
LOC: OPOB 20:53 → OBGYN 20:53
PROVIDERS: PCP Nurse Practitioner; Visit Provider Family Medicine
DX: O26.893 Other specified pregnancy related conditions, third trimester (principal); Z3A.22 22 weeks gestation of pregnancy; R10.9 Unspecified abdominal pain; O99.333 Smoking (tobacco) complicating pregnancy, third trimester
CPT/HCPCS: 12345; 36415; 51702; 59025; 80053; 81001; 85025; 87086; 96372; 99211; J0290; J0696; J0702; J3105; J3475

== ENCOUNTER → 2022-11-19 09:08 | Outpatient (BNVA) | payer MEDICAID, SELFPAY | PROVIDERS: PCP Nurse Practitioner; Visit Provider Nurse Practitioner | DX: F41.8 Other specified anxiety disorders (principal); E55.9 Vitamin D deficiency, unspecified; R53.83 Other fatigue; N92.6 Irregular menstruation, unspecified; Z12.4 Encounter for screening for malignant neoplasm of cervix; Z30.018 Encounter for initial prescription of other contraceptives | CPT/HCPCS: 80053; 82306; 82607; 85025; 88175 ==

== ENCOUNTER 2022-12-02 10:25 | Emergency (ER) | payer MEDICAID, SELFPAY ==
[2022-12-02 10:39] VITALS: BP 116/42; PULSE 52; RESP 16; TEMP 36.3; O2SAT 98
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
[2022-12-02 12:00] LABS: Urine Appearance SL Hazy (CLEAR); Urine Color Yellow (Yellow)
[2022-12-02 12:01] LABS: Add Urine Microscopic? YES; Bilirubin Urine 1+ (Negative); Blood Urine 3+ (Negative); Glucose Urine UA Norm (Normal); Ketones Urine 2+ (Negative); Leukocyte Esterase Urine Negative (Negative); Nitrate Urine Negative (Negative); Protein Urine 1+ (Negative); Urobilinogen Urine Neg (Negative); pH Urine 6 (5-7)
[2022-12-02 12:02] LABS: Add Urine Culture? Yes; Mucus Urine 3+ /hpf; RBC Urine 40-50 /hpf (0-2); Squamous Epithelial Cell Urine 0-4 /hpf (0-5); WBC Urine RARE /hpf (0-5)
[2022-12-02 12:09] LABS: Basophils % 0.2 %; Hematocrit 44.3 % (37.0-47.0); Hemoglobin 14.6 g/dL (11.5-15.3); Lymphocytes # 1.1 10^3/uL (0.8-4.8); Mean Corpuscular Hemoglobin 27.9 pg (28.0-34.0); Mean Corpuscular Volume 84.7 fl (81-99); Mean Platelet Volume 11.5 fL (7.4-10.4); Monocytes # 0.6 10^3/uL (0.2-0.9); Monocytes % 6.9 %; Neutrophils # 6.47 10^3/uL (1.8-7.7); Neutrophils % 79.7 %; Nucleated Red Blood Cells % 0 %; Platelet Count 256 10^3/cmm (130-400); Red Blood Count 5.23 10^6/uL (4.1-5.3); Red Cell Distribution Width 13.6 % (12.1-15.1); White Blood Count 8.1 10^3/uL (4.0-10.0)
[2022-12-02 12:31] LABS: Alanine Aminotransferase 35 U/L (0-33); Albumin Level 4.6 g/dL (3.5-5.2); Alkaline Phosphatase 78 U/L (35-105); Anion Gap 18.5 (5-19); Aspartate Amino Transferase 27 U/L (0-32); Blood Urea Nitrogen 14 mg/dL (6-20); Calcium 9.2 mg/dL (8.5-10.5); Carbon Dioxide 22 mmol/L (22-29); Chloride 104 mmol/L (98-107); Creatinine Clr Calc Pharmacy 103.9424; Globulin 3.3 g/dL (1.3-4.6); Glomerular Filtration Rate 77.6 mL/min (90-130); Glucose 105 mg/dL (65-115); HCG, Serum Qual Negative (Negative); Lipase 29 U/L (13-60); Osmolality Calculated 293 mOsm/kg (285-295); Potassium 3.5 mmol/L (3.5-5.1); Sodium 141 mmol/L (136-145); Total Bilirubin 0.3 mg/dL (0.15-1.2); Total Protein 7.9 g/dL (6.6-8.7)
[2022-12-02] MEDS: sodium chloride 0.9% 1,000 ML 999 ML IV ×2 (13:09→15:47)
[2022-12-02] MEDS: metoclopramide 5 mg/mL SDV 2 mL 10 MG IVP (13:10)
[2022-12-02 13:15] VITALS: BP 121/71; PULSE 80; RESP 18; O2SAT 99
[2022-12-02] MEDS: haloperidol inj 5 mg/mL INJ 1 mL IVP (13:21)
[2022-12-02] MEDS: LORazepam 2 mg/mL INJ 1 mL 1 MG IVP (13:21)
[2022-12-02 13:56] VITALS: BP 99/58; PULSE 54; O2SAT 95
[2022-12-02 15:49] VITALS: BP 106/55; PULSE 66; O2SAT 96
[2022-12-02 16:55] VITALS: BP 115/50; PULSE 58; O2SAT 97
== END 2022-12-02 16:56 | disposition home or self-care (01) ==
PROVIDERS: Emergency Provider Physician Assistant; PCP Nurse Practitioner
DX: R11.10 Vomiting, unspecified (principal); F17.290 Nicotine dependence, other tobacco product, uncomplicated
CPT/HCPCS: 36415; 80053; 81001; 83690; 84703; 85025; 87086; 96374; 96375; 99284; J1630; J2060; J2765; J7030

== ENCOUNTER → 2023-02-09 10:13 | Outpatient (BNVA) | payer MEDICAID, SELFPAY | PROVIDERS: PCP Nurse Practitioner; Visit Provider Nurse Practitioner | DX: E53.8 Deficiency of other specified B group vitamins (principal); E55.9 Vitamin D deficiency, unspecified; F41.8 Other specified anxiety disorders; Z13.6 Encounter for screening for cardiovascular disorders | CPT/HCPCS: 80053; 80061; 82306; 82607; 84443 ==

== ENCOUNTER 2023-08-07 16:46 | Emergency (ER) | payer MEDICAID, SELFPAY ==
[2023-08-07 16:52] VITALS: BP 148/84; PULSE 86; RESP 16; TEMP 37; O2SAT 99; BMI 36.5
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
[2023-08-07 17:51] VITALS: BP 105/67; O2SAT 95
[2023-08-07 18:44] LABS: Basophils # 0.1 10^3/uL (0.0-0.1); Basophils % 0.3 %; Eosinophils # 0.1 10^3/uL (0.0-0.8); Eosinophils % 0.7 %; Hematocrit 41.5 % (36-47); Lymphocytes # 4.4 10^3/uL (0.8-4.8); Lymphocytes % 28.1 %; Mean Corpuscular HGB Conc 32.8 g/dL (30-55); Mean Corpuscular Hemoglobin 29.3 pg (27-33); Mean Corpuscular Volume 89.4 fl (85-98); Mean Platelet Volume 10.8 fL (7.4-10.4); Monocytes # 0.7 10^3/uL (0.2-0.9); Monocytes % 4.7 %; Neutrophils # 10.15 10^3/uL (1.8-7.7); Neutrophils % 65.7 %; Nucleated Red Blood Cells % 0 %; Platelet Count 271 10^3/cmm (157-399); Red Blood Count 4.64 10^6/uL (3.85-5.65); Red Cell Distribution Width 12.5 % (12.1-15.1); White Blood Count 15.47 10^3/uL (3.29-11.43)
[2023-08-07 18:46] VITALS: BP 127/64; O2SAT 98
[2023-08-07 18:52] LABS: Add Urine Microscopic? YES; Bilirubin Urine Neg (Negative); Blood Urine 3+ (Negative); Glucose Urine UA Norm (Normal); Ketones Urine Negative (Negative); Leukocyte Esterase Urine Negative (Negative); Nitrate Urine Negative (Negative); Protein Urine 1+ (Negative); Specific Gravity, Urine 1.015 (1.005-1.030); Urine Appearance Hazy (CLEAR); Urine Color Other (Yellow); Urobilinogen Urine Norm (Negative); pH Urine 6 (5-7)
[2023-08-07 18:59] LABS: Add Urine Culture? Yes; Bacteria Urine 2+ /hpf; RBC Urine TOO NUMEROUS TO CNT /hpf (0-2); Squamous Epithelial Cell Urine 0-4 /hpf (0-5)
[2023-08-07 19:04] VITALS: BP 103/67; PULSE 70; RESP 18; O2SAT 98
[2023-08-07 19:15] LABS: Alanine Aminotransferase 15 U/L (0-33); Albumin Level 4.3 g/dL (3.5-5.2); Alkaline Phosphatase 67 U/L (35-105); Anion Gap 13.7 (5-19); Aspartate Amino Transferase 14 U/L (0-32); Blood Urea Nitrogen 9 mg/dL (6-20); Calcium 9.2 mg/dL (8.5-10.5); Carbon Dioxide 24 mmol/L (22-29); Chloride 104 mmol/L (98-107); Globulin 2.7 g/dL (1.3-4.6); Glomerular Filtration Rate 88.1 mL/min (90-130); Glucose 80 mg/dL (65-115); Osmolality Calculated 284 mOsm/kg (285-295); Potassium 3.7 mmol/L (3.5-5.1); Sodium 138 mmol/L (136-145); Total Bilirubin 0.2 mg/dL (0.15-1.2)
[2023-08-07 19:28] VITALS: BP 103/67; PULSE 72; RESP 18; O2SAT 99
== END 2023-08-07 19:29 | disposition home or self-care (01) ==
PROVIDERS: Emergency Provider Nurse Practitioner Family; PCP Nurse Practitioner
DX: O20.0 Threatened abortion (principal); Z3A.00 Weeks of gestation of pregnancy not specified; O99.331 Smoking (tobacco) complicating pregnancy, first trimester; F17.290 Nicotine dependence, other tobacco product, uncomplicated
CPT/HCPCS: 36415; 80053; 81001; 84702; 85025; 86900; 87086; 99283

== ENCOUNTER → 2023-11-07 15:56 | Outpatient (BNVA) | payer MEDICAID, SELFPAY | PROVIDERS: PCP Nurse Practitioner; Visit Provider Nurse Practitioner | DX: E53.8 Deficiency of other specified B group vitamins (principal); E55.9 Vitamin D deficiency, unspecified; F41.8 Other specified anxiety disorders | CPT/HCPCS: 80053; 82306; 82607; 84443; 85025 ==

== ENCOUNTER → 2024-01-24 09:04 | Outpatient (BNVA) | payer MEDICAID, SELFPAY | PROVIDERS: PCP Nurse Practitioner; Visit Provider Nurse Practitioner | DX: N91.2 Amenorrhea, unspecified (principal); Z33.1 Pregnant state, incidental | CPT/HCPCS: 81025 ==

== ENCOUNTER 2024-02-29 09:44 | Emergency (ER) | payer MEDICAID, SELFPAY ==
[2024-02-29 09:52] VITALS: BP 129/80; PULSE 81; TEMP 37; O2SAT 99; BMI 34.7
[2024-02-29 10:26] LABS: Basophils # 0.1 10^3/uL (0.0-0.1); Basophils % 0.6 %; Eosinophils # 0.2 10^3/uL (0.0-0.8); Eosinophils % 1.5 %; Hematocrit 41.2 % (36-47); Lymphocytes # 3.1 10^3/uL (0.8-4.8); Lymphocytes % 25.5 %; Mean Corpuscular HGB Conc 32.5 g/dL (30-55); Mean Corpuscular Hemoglobin 29.7 pg (27-33); Mean Corpuscular Volume 91.4 fl (85-98); Mean Platelet Volume 11.4 fL (7.4-10.4); Monocytes # 0.6 10^3/uL (0.2-0.9); Monocytes % 5.1 %; Neutrophils # 8.17 10^3/uL (1.8-7.7); Nucleated Red Blood Cells % 0 %; Platelet Count 279 10^3/cmm (157-399); Red Blood Count 4.51 10^6/uL (3.85-5.65); Red Cell Distribution Width 12.5 % (12.1-15.1); White Blood Count 12.18 10^3/uL (3.29-11.43)
--- NOTE | 2024-02-29 10:36 | PC.PHAR ---
PT TAKING NO HOME MEDICATIONS AT THIS TIME.
[2024-02-29 10:46] VITALS: BP 114/69; PULSE 70; O2SAT 99
[2024-02-29 10:55] LABS: Alanine Aminotransferase 16 U/L (0-33); Albumin Level 4.1 g/dL (3.5-5.2); Alkaline Phosphatase 58 U/L (35-105); Aspartate Amino Transferase 15 U/L (0-32); Blood Urea Nitrogen 7 mg/dL (6-20); Calcium 9.2 mg/dL (8.5-10.5); Carbon Dioxide 22 mmol/L (22-29); Chloride 106 mmol/L (98-107); Creatinine Clr Calc Pharmacy 152.9249; Globulin 2.8 g/dL (1.3-4.6); Glomerular Filtration Rate 122.8 mL/min (90-130); Glucose 95 mg/dL (65-115); Osmolality Calculated 286 mOsm/kg (285-295); Sodium 139 mmol/L (136-145); Total Bilirubin 0.2 mg/dL (0.15-1.2); Total Protein 6.9 g/dL (6.6-8.7)
[2024-02-29 11:24] LABS: Anion Gap 15.7 (5-19); Potassium 4.7 mmol/L (3.5-5.1)
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
== END 2024-02-29 15:05 | disposition home or self-care (01) ==
PROVIDERS: Emergency Provider Family Medicine; PCP Nurse Practitioner
DX: O03.4 Incomplete spontaneous abortion without complication (principal); F17.290 Nicotine dependence, other tobacco product, uncomplicated
CPT/HCPCS: 36415; 80053; 84702; 85025; 99283

== ENCOUNTER 2024-08-31 12:00 | Emergency (ER) | payer MEDICAID, SELFPAY ==
[2024-08-31 12:02] VITALS: BP 103/66; PULSE 84; RESP 16; TEMP 36.8; O2SAT 98; BMI 31.8
--- NOTE | 2024-08-31 12:34 | US_ITS ---
WS: [id number] EARLY OBSTETRICAL ULTRASOUND (<14 WEEKS). HISTORY: Vaginal bleeding in COMPARISON: None available. Single intrauterine gestational sac is identified. Cardiac activity at 147 BPM. Biometry consistent w ith a gestation of 13 weeks and 6 days. Placenta developing towards the fundus. Cervix is closed. No free fluid. RIGHT ovary not identified. Normal LEFT ovary. US/US OB <= 14 weeks fetus [id number] IMPRESSION: 1. Single intrauterine gestation of 13w6d with an EDC of 03/02/2025. 2. Normal cardiac activity.
[2024-08-31 13:21] LABS: Basophils # 0.1 10^3/uL (0.0-0.1); Basophils % 0.4 %; Eosinophils # 0.1 10^3/uL (0.0-0.8); Eosinophils % 0.8 %; Hematocrit 35.4 % (36-47); Lymphocytes # 1.5 10^3/uL (0.8-4.8); Lymphocytes % 13.1 %; Mean Corpuscular HGB Conc 33.9 g/dL (30-55); Mean Corpuscular Hemoglobin 30.2 pg (27-33); Mean Corpuscular Volume 88.9 fl (85-98); Mean Platelet Volume 10.7 fL (7.4-10.4); Monocytes # 0.8 10^3/uL (0.2-0.9); Monocytes % 6.6 %; Neutrophils # 9.01 10^3/uL (1.8-7.7); Neutrophils % 78.8 %; Nucleated Red Blood Cells % 0 %; Platelet Count 228 10^3/cmm (157-399); Red Blood Count 3.98 10^6/uL (3.85-5.65); Red Cell Distribution Width 12.6 % (12.1-15.1); White Blood Count 11.45 10^3/uL (3.29-11.43)
[2024-08-31 14:01] LABS: Alanine Aminotransferase 11 U/L (0-33); Albumin Level 3.8 g/dL (3.5-5.2); Alkaline Phosphatase 50 U/L (35-105); Anion Gap 14.7 (5-19); Aspartate Amino Transferase 13 U/L (0-32); Blood Urea Nitrogen 5 mg/dL (6-20); Calcium 8.9 mg/dL (8.5-10.5); Carbon Dioxide 21 mmol/L (22-29); Chloride 104 mmol/L (98-107); Creatinine Clr Calc Pharmacy 217.5576; Globulin 2.5 g/dL (1.3-4.6); Glomerular Filtration Rate 194.5 mL/min (90-130); Glucose 80 mg/dL (65-115); Osmolality Calculated 278 mOsm/kg (285-295); Potassium 3.7 mmol/L (3.5-5.1); Sodium 136 mmol/L (136-145); Total Bilirubin 0.2 mg/dL (0.15-1.2); Total Protein 6.3 g/dL (6.6-8.7)
[2024-08-31 15:39] VITALS: BP 95/57; PULSE 78; RESP 16; O2SAT 95
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
== END 2024-08-31 15:48 | disposition home or self-care (01) ==
PROVIDERS: Emergency Provider Emergency Medicine; PCP Nurse Practitioner
DX: O20.9 Hemorrhage in early pregnancy, unspecified (principal); Z3A.14 14 weeks gestation of pregnancy
CPT/HCPCS: 36415; 76801; 80053; 84702; 85025; 86900; 99284

== ENCOUNTER 2024-09-28 01:22 | Emergency (ER) | payer MEDICAID, SELFPAY ==
[2024-09-28 01:23] VITALS: PULSE 84; RESP 16; O2SAT 99; BMI 69.7
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
[2024-09-28 01:43] LABS: Basophils % 0.2 %; Eosinophils % 0.1 %; Hematocrit 38.4 % (36-47); Lymphocytes # 0.5 10^3/uL (0.8-4.8); Lymphocytes % 2.7 %; Mean Corpuscular HGB Conc 33.9 g/dL (30-55); Mean Corpuscular Hemoglobin 29.8 pg (27-33); Mean Corpuscular Volume 88.1 fl (85-98); Mean Platelet Volume 11.1 fL (7.4-10.4); Monocytes # 0.5 10^3/uL (0.2-0.9); Monocytes % 2.4 %; Neutrophils # 18.17 10^3/uL (1.8-7.7); Neutrophils % 94.1 %; Nucleated Red Blood Cells % 0 %; Platelet Count 277 10^3/cmm (157-399); Red Blood Count 4.36 10^6/uL (3.85-5.65); Red Cell Distribution Width 12.7 % (12.1-15.1); White Blood Count 19.32 10^3/uL (3.29-11.43)
[2024-09-28 01:51] LABS: Bilirubin Urine Negative (Negative); Blood Urine 1+ (Negative); Glucose Urine UA Negative (Normal); Ketones Urine 2+ (Negative); Leukocyte Esterase Urine Negative (Negative); Nitrate Urine Negative (Negative); Protein Urine 1+ (Negative); Urine Appearance Clear (CLEAR); Urine Color Dark Yellow (Yellow); pH Urine 5.5 (5-7)
[2024-09-28 01:54] LABS: Add Urine Microscopic? YES
[2024-09-28] MEDS: sodium chloride 0.9% 1,000 ML 999 ML IV (01:55)
[2024-09-28] MEDS: ondansetron 2 mg/ML SDV 2 mL 8 MG IVP (01:55)
[2024-09-28 02:04] LABS: Alanine Aminotransferase 19 U/L (0-33); Albumin Level 3.8 g/dL (3.5-5.2); Alkaline Phosphatase 61 U/L (35-105); Anion Gap 20.9 (5-19); Aspartate Amino Transferase 15 U/L (0-32); Blood Urea Nitrogen 10 mg/dL (6-20); Calcium 8.6 mg/dL (8.5-10.5); Carbon Dioxide 16 mmol/L (22-29); Chloride 105 mmol/L (98-107); Creatinine Clr Calc Pharmacy 279.4564; Globulin 2.3 g/dL (1.3-4.6); Glomerular Filtration Rate 150.3 mL/min (90-130); Glucose 176 mg/dL (65-115); Magnesium 1.7 mg/dL (1.7-2.3); Osmolality Calculated 289 mOsm/kg (285-295); Potassium 3.9 mmol/L (3.5-5.1); Sodium 138 mmol/L (136-145); Total Bilirubin 0.4 mg/dL (0.15-1.2); Total Protein 6.1 g/dL (6.6-8.7)
[2024-09-28 02:13] LABS: Specific Gravity, Urine 1.033 (1.005-1.030)
[2024-09-28 02:14] LABS: Bacteria Urine TRACE /hpf; Mucus Urine 2+ /hpf; Squamous Epithelial Cell Urine 0-4 /hpf (0-5); UA Manual Slide Review YES; UA Slide Review UA Slide Review Perf
[2024-09-28 02:59] VITALS: BP 104/67; PULSE 64; O2SAT 99
[2024-09-28 03:40] VITALS: BP 102/60; PULSE 66; O2SAT 98
[2024-09-28 04:32] VITALS: BP 102/60; PULSE 63; O2SAT 96
== END 2024-09-28 04:35 | disposition home or self-care (01) ==
PROVIDERS: Emergency Provider Emergency Medicine; PCP Nurse Practitioner
DX: K52.9 Noninfective gastroenteritis and colitis, unspecified (principal); F17.290 Nicotine dependence, other tobacco product, uncomplicated
CPT/HCPCS: 80053; 81001; 83735; 85025; 96374; 99284; J2405; J7030

== ENCOUNTER 2024-11-29 07:31 | Outpatient (CLI) | payer MEDICAID, SELFPAY ==
[2024-11-29 07:35] VITALS: BMI 33.8
[2024-11-29 07:42] VITALS: BP 115/67; PULSE 78
[2024-11-29 08:04] VITALS: BP 104/59; PULSE 64
== END 2024-11-29 08:10 | disposition home or self-care (01) ==
LOC: OPOB 07:32 → OBGYN 07:32
PROVIDERS: PCP Nurse Practitioner; Visit Provider Family Medicine
DX: O26.899 Other specified pregnancy related conditions, unspecified trimester (principal); Z3A.00 Weeks of gestation of pregnancy not specified; R11.2 Nausea with vomiting, unspecified; R19.7 Diarrhea, unspecified
CPT/HCPCS: 59025; 99211

== ENCOUNTER 2025-01-25 17:04 | Outpatient (CLI) | payer MEDICAID, SELFPAY ==
[2025-01-25] MEDS: betamethasone susp 6 mg/mL 5 mL 12 MG IM (17:21)
--- NOTE | 2025-01-25 17:29 | PC.NURSE ---
Pt here for scheduled betamethasone injection due to history of labor. First dose given at [facility] on 01/24/25, repeat at [facility] on 01/25/25. No monitoring needed per MD orders.
== END 2025-01-25 17:25 | disposition home or self-care (01) ==
LOC: OPOB 17:05
PROVIDERS: PCP Nurse Practitioner; Visit Provider Family Medicine
DX: O60.00 Preterm labor without delivery, unspecified trimester (principal); Z3A.00 Weeks of gestation of pregnancy not specified
CPT/HCPCS: 96372; J0702

== ENCOUNTER 2025-02-20 03:59 | Inpatient (IN) | payer MEDICAID, SELFPAY ==
[2025-02-19 21:45] VITALS: BMI 38.2
[2025-02-19 21:57] VITALS: BP 121/78; PULSE 72; TEMP 35.6
[2025-02-19 22:20] VITALS: BP 125/76; PULSE 71
[2025-02-19 23:28] VITALS: BP 117/73; PULSE 62
[2025-02-20] VITALS (16 sets, daily range): BP systolic 95–130; BP diastolic 54–85; PULSE 51–83; RESP 16; TEMP 36.5–36.7; O2SAT 97–98
[2025-02-20] MEDS: sodium chloride 0.9% 1,000 ML 999 ML IV (04:06)
[2025-02-20 04:22] LABS: Basophils % 0.2 %; Eosinophils # 0.1 10^3/uL (0.0-0.8); Eosinophils % 0.4 %; Hematocrit 36.5 % (36-47); Lymphocytes # 3.3 10^3/uL (0.8-4.8); Lymphocytes % 18.3 %; Mean Corpuscular HGB Conc 34.5 g/dL (30-55); Mean Corpuscular Hemoglobin 30.1 pg (27-33); Mean Corpuscular Volume 87.3 fl (85-98); Mean Platelet Volume 11.8 fL (7.4-10.4); Monocytes # 1.1 10^3/uL (0.2-0.9); Monocytes % 6.1 %; Neutrophils # 13.51 10^3/uL (1.8-7.7); Neutrophils % 74.5 %; Nucleated Red Blood Cells % 0 %; Platelet Count 237 10^3/cmm (157-399); Red Blood Count 4.18 10^6/uL (3.85-5.65); Red Cell Distribution Width 12.7 % (12.1-15.1); White Blood Count 18.13 10^3/uL (3.29-11.43)
[2025-02-20] MEDS: ondansetron 2 mg/ML SDV 2 mL 4 MG IVP (04:35)
[2025-02-20 05:27] LABS: Amphetamines Screen Urine Negative (Negative); Barbiturates Screen Urine Negative (Negative); Benzodiazepines Screen Urine Negative (Negative); Cocaine Screen Urine Negative (Negative); Opiate Screen Urine Negative (Negative); PCP Screen Urine Negative (Negative); THC Screen Urine Negative (Negative)
--- NOTE | 2025-02-20 06:00 | PM.OPHPUD ---
Labor & Delivery H&P Update Date of Procedure: February 20, 2025 Date H&P Performed: 02/19/25 Changes to previous documentation: The patient presented to the hospital in active labor Admission Diagnosis: 24-year-old 5 para 0-2-2-1 at 38 weeks estimated gestational age presenting in active labor Planned procedure: Spontaneous vaginal delivery Other information: The patient is a pleasant 24-year-old female who presents to the hospital in active labor. Initially she was having contractions that were intermittent, but did demonstrate some cervical change. After being in the hospital for several hours and not demonstrating a consistent contraction pattern, she began to have more consistent contractions and demonstrate cervical change. Her was relatively unremarkable. She had consistent care. Her blood type was AB+. Her antibody screen was negative. She is rubella nonimmune. She was GBS negative. She passed her glucose screen. The remainder of her infectious disease profile was within normal limits. Related Problem List Diagnoses (1) 38 weeks gestation of : A&P Assessment and plan (1) 38 weeks gestation of : I anticipate routine labor and spontaneous vaginal delivery. Status: Acute PDMP PDMP Reviewed: Not Reviewed
--- NOTE | 2025-02-20 06:15 | PM.DELIVERY ---
Delivery Note: Date of delivery: February 20, 2025 Pre-delivery diagnoses: 24-year-old 5 para 0-2-2-1 at 38 weeks estimated gestational age in active labor Post-delivery diagnoses: Status post spontaneous vaginal delivery Procedure: Spontaneous vaginal delivery Delivering Physician: Te Bower Estimated blood loss (mL): 400 Pre-Delivery Course: The patient presented to the hospital having inconsistent contractions and making some cervical change. Her contractions eventually became more consistent, and she began dilating quickly. She dilated to complete, and an amniotomy was performed. Delivery: DELIVERY: The patient progressed to complete without difficulty. She delivered a male with a weight of 3000 g with Apgars of 9, 9. The baby was delivered from the CHAZ position and placed on the mother's abdomen. The cord was then clamped and cut. There was no nuchal cord. There was no meconium. The placenta and 3 vessel cord were delivered intact shortly thereafter. The perineum and vaginal vault were carefully examined. A first-degree right vaginal wall laceration was noted. After infusing the area with lidocaine 1%, the laceration was repaired with 3-0 Vicryl. The patient did have a steady trickle of blood from the time of delivery until the laceration was repaired. That resulted in a higher than average blood loss. Her bleeding almost completely resolved with repair of the vaginal laceration.. Both the mother and the baby were in stable condition. Post-Delivery Status: Good History History History 5 Term 0 2 Miscarriages/Ectopic 2 Living Children 1 A&P Assessment and plan (1) 38 weeks gestation of : I anticipate routine care. (2) Spontaneous vaginal delivery: PDMP PDMP Reviewed: Not Reviewed Coding Level of Care Code Acute Code for Chg Fwd Diagnoses 38 weeks gestation of Z3A.38 Spontaneous vaginal delivery O80
[2025-02-20] MEDS: ibuprofen 800 mg tablet PO ×2 (08:12→16:00)
[2025-02-20] MEDS: PRENATAL VIT NO.130/IRON/FOLIC 1 EACH TABLET PO (08:12)
[2025-02-20] MEDS: docusate sodium 100 mg Capsule PO (08:12)
[2025-02-20] MEDS: benzocaine-menthol 78 gm Canister 1 SPRAY TOPICAL (09:12)
[2025-02-20] MEDS: lanolin oint 7 gm 1 APPLIC TOPICAL (09:12)
[2025-02-20 17:45] LABS: Hematocrit 29.1 % (36-47); Mean Corpuscular Hemoglobin 29.6 pg (27-33); Mean Corpuscular Volume 89.8 fl (85-98); Mean Platelet Volume 12.2 fL (7.4-10.4); Platelet Count 210 10^3/cmm (157-399); Red Blood Count 3.24 10^6/uL (3.85-5.65); Red Cell Distribution Width 12.9 % (12.1-15.1); White Blood Count 15.26 10^3/uL (3.29-11.43)
[2025-02-21 05:17] VITALS: BP 92/53; PULSE 67; RESP 15; O2SAT 98
--- NOTE | 2025-02-21 06:47 | PM.OBGYDC ---
Discharge Providers ANESTHESIOLOGY FACULTY Date of Admission: 02/20/25 03:59 Date of Discharge: 02/25/25 Attending Provider at Admission: Te Bower MD Attending Provider at Discharge: Te Bower MD Primary Care Provider: MARIEL Fonseca Diagnoses at Discharge Discharge Diagnosis (1) 38 weeks gestation of : Status: Resolved (2) Spontaneous vaginal delivery: Status: Resolved Reason for Visit Reason for Visit: Contractions Hospital Course Hospital Course The patient presented to the hospital in early labor. She gradually transition into normal labor. She then progressed to complete and had an unremarkable vaginal delivery of a healthy appearing term . She did have a vaginal laceration with moderate bleeding which was repaired in the usual fashion. Her course was unremarkable. She breast-fed well. Her pain was well-controlled. Her bleeding was within normal limits. There were no concerns. Information Peripartum Data: Delivery Method: Vaginal Physical Exam Narrative: The patient is alert. She appears comfortable. Her heart has a regular rate and rhythm with no murmurs appreciated. Lungs are clear to auscultation bilaterally. Her fundus is firm and below the umbilicus. History History History 5 Term 0 2 Miscarriages/Ectopic 2 Living Children 1 Discharge Data Studies Completed and Pending Laboratory Results WBC 15.26 10^3/uL (3.29-11.43) H 02/20/25 17:30 RBC 3.24 10^6/uL (3.85-5.65) L 02/20/25 17:30 Hgb 9.60 g/dL (11.27-16.99) L 02/20/25 17:30 Hct 29.1 % (36-47) L 02/20/25 17:30 MCV 89.8 fl (85-98) 02/20/25 17:30 MCH 29.6 pg (27-33) 02/20/25 17:30 MCHC 33.0 g/dL (30-55) 02/20/25 17:30 RDW 12.9 % (12.1-15.1) 02/20/25 17:30 Plt Count 210 10^3/cmm (157-399) 02/20/25 17: MPV 12.2 fL (7.4-10.4) H 02/20/25 17:30 Neut % (Auto) 74.5 % 02/20/25 04:00 Lymph % (Auto) 18.3 % 02/20/25 04:00 [place] % (Auto) 6.1 % 02/20/25 04:00 Eos % (Auto) 0.4 % 02/20/25 04:00 Baso % (Auto) 0.2 % 02/20/25 04:00 Neut # (Auto) 13.51 10^3/uL (1.8-7.7) H 02/20/25 04:00 Lymph # (Auto) 3.3 10^3/uL (0.8-4.8) 02/20/25 04:00 [place] # (Auto) 1.1 10^3/uL (0.2-0.9) H 02/20/25 04:00 Eos # (Auto) 0.1 10^3/uL (0.0-0.8) 02/20/25 04:00 Baso # (Auto) 0.0 10^3/uL (0.0-0.1) 02/20/25 04:00 Nucleated RBC % (auto) 0 % 02/20/25 04:00 Nucleated RBCs # 0.0 /100WBC 02/20/25 04:00 Urine Opiates Screen Negative ng/mL (Negative) 02/20/25 04:00 Ur Barbiturates Screen Negative ng/mL (Negative) 02/20/25 04:00 Ur Phencyclidine Scrn Negative ng/mL (Negative) 02/20/25 04:00 Ur Amphetamines Screen Negative ng/mL (Negative) 02/20/25 04:00 U Benzodiazepines Scrn Negative ng/mL (Negative) 02/20/25 04:00 Urine Cocaine Screen Negative ng/mL (Negative) 02/20/25 04:00 U Marijuana (THC) Screen Negative ng/mL (Negative) 02/20/25 04:00 Blood Type AB Positive 02/20/25 04:00 Rho(D) Type Rh positive 02/20/25 04:00 Antibody Screen Negative 02/20/25 04:00 Vitals Last Vital Signs Temp 97.7 F 02/20/25 21:06 Pulse 67 02/21/25 05:17 Resp 15 02/21/25 05:17 BP 92/53 02/21/25 05:17 Pulse Ox 98 06/26/25 05:17 O2 Del Method Room Air 02/21/25 05:17 Results Labs OB ([facility]): Obstetrics US 01/14/25 Blood Type AB Positive 02/20/25 Antibody Screen Negative 02/20/25 Hct, (36-47) 29.1 % L 02/20/25 Hgb, (11.27-16.99) 9.60 g/dL L 02/20/25 Rho(D) Type Rh positive 02/20/25 Plt Count, (157-399) 210 10^3/cmm 02/20/25 TSH, (0.27-4.20) 0.98 uIU/mL 11/07/23 Ser , Semi-Qnt 11590.00 mIU/mL 08/31/24 HCG, Qual, (Negative) Positive H 01/24/24 Urine Opiates Screen, (Negative) Negative ng/mL 02/20/25 Ur Barbiturates Screen, (Negative) Negative ng/mL 02/20/25 Ur Phencyclidine Scrn, (Negative) Negative ng/mL 02/20/25 Ur Amphetamines Screen, (Negative) Negative ng/mL 02/20/25 U Benzodiazepines Scrn, (Negative) Negative ng/mL 02/20/25 Urine Cocaine Screen, (Negative) Negative ng/mL 02/20/25 U Marijuana (THC) Screen, (Negative) Negative ng/mL 02/20/25 Micro Urine Specimen 08/07/23 Discharge Plan Discharge Patient Disposition: Home Condition: Stable Prescriptions: New ibuprofen 800 mg Tablet 800 mg PO TID Qty: 45 0RF Continued 1 tab PO DAILY Discharge Orders: Discharge Order (Routine); Ordered 02/21/25 Ordered By: Te Bower Referrals: Te Bower MD [Physician, Family Practice] - 04/04/25 11:00 am Discharge Diet: Usual diet Discharge Activity: Limit activity as instructed Patient Instructions: Ibuprofen (By mouth), Depression (DC), Perineal Care (DC), Caring for Your Baby (DC), Bleeding (DC), Preeclampsia and Eclampsia After Delivery (GEN), OB Care at Home, Opioid Safety, Patient Portal & Chase Instructions, Abnormal Bleeding Discharge Attestations ANESTHESIOLOGY FACULTY Time Spent in Discharge Care*: less than 30 min Coding Level of Care Code Acute Code for Chg Fwd Diagnoses 38 weeks gestation of Z3A.38 Spontaneous vaginal delivery O80
[2025-02-21] MEDS: ibuprofen 800 mg tablet PO (09:21)
[2025-02-21] MEDS: benzocaine-menthol 78 gm Canister 1 SPRAY TOPICAL (09:21)
[2025-02-21] MEDS: docusate sodium 100 mg Capsule PO (09:21)
[2025-02-21] MEDS: measles,mumps,rubella pf Vial (w/diluent) 0.5 ML SUBCUT (09:21)
[2025-02-21] MEDS: PRENATAL VIT NO.130/IRON/FOLIC 1 EACH TABLET PO (09:21)
[2025-02-21 10:00] VITALS: BP 100/63; PULSE 69; RESP 18; TEMP 36.9; O2SAT 98
== END 2025-02-21 09:57 | disposition home or self-care (01) | DRG 807 ==
LOC: OPOB 03:59 → OBGYN 03:59
PROVIDERS: Admitting Provider Family Medicine; PCP Nurse Practitioner; Visit Provider Family Medicine
DX: O70.0 First degree perineal laceration during delivery (principal); Z37.0 Single live birth; Z3A.38 38 weeks gestation of pregnancy
CPT/HCPCS: 36415; 59025; 59409; 80306; 85025; 85027; 86850; 86900; 90707; 96372; 96374; 99211; J2405; J7030; J9999